=== PATIENT | male | born 1985 | race Caucasian/White ===

== ENCOUNTER 2021-03-31 08:48 | Emergency (ER) | payer OTHER ==
[~2021-03-31] VITALS: Ht 185.4 cm; Wt 105.3 kg
--- NOTE | 2021-03-31 08:58 | NUR ---
improvement coordinator: EKG completed in triage
--- NOTE | 2021-03-31 09:29 | NUR ---
PT CAME IN [place] HIGH BP. PT WAS TAKING BP AT HOME AND AT RECCOMENDATION OF HIS PYSCHOLOGIST HE CAME TO ER. HOME BP 150S/80S. PT REPORTS TAKING XANAX AND CLONOPINE. PT SAID HE ALSO AN EPISODE OF CHEST PAIN THIS MORNING. PT REPORTS OVER THE LAST 6 MONTHS HAVING ANXIETY ATTACKS. "JUST TONS OF WORK PRESSURE". PT RESTING IN [facility]. EKG COMPLETE.
[2021-03-31 09:50] LABS: BASOPHILS % (AUTO) 1 % (0-1); EOSINOPHILS % (AUTO) 1 % (1-7); LYMPHOCYTES % (AUTO) 23 % (22-44); MEAN CORPUSCULAR HEMOGLOBIN 30.8 pg (27.5-34.5); MEAN CORPUSCULAR HGB CONC 35.4 g/dL (33.2-36.2); MEAN PLATELET VOLUME 9.4 fL (7.4-10.4); MONOCYTES % (AUTO) 7 % (2-9); NEUTROPHILS % (AUTO) 68 % (42-75); PLATELET COUNT 159 x10^3/uL (130-400); RED BLOOD COUNT 5.01 x10^6/uL (4.38-5.82); RED CELL DISTRIBUTION WIDTH 13.3 % (9.4-14.8)
[2021-03-31 10:02] LABS: ALANINE AMINOTRANSFERASE 31 U/L (12-78); ALBUMIN 3.9 g/dL (3.4-5.0); ANION GAP 4 mmol/L (5-15); CALCIUM 8.7 mg/dL (8.5-10.1); CHLORIDE 109 mmol/L (98-107); CREATININE 0.97 mg/dL (0.7-1.3)
[2021-03-31 10:06] LABS: ALKALINE PHOSPHATASE 61 U/L (45-117); BILIRUBIN,TOTAL 0.6 mg/dL (0.2-1.0); TOTAL PROTEIN 7.2 g/dL (6.4-8.2); TROPONIN I < 0.015 ng/mL (0.000-0.045)
[2021-03-31 10:38] VITALS: BP 128/88
== END 2021-03-31 12:39 | disposition home or self-care (01) ==
LOC: ED 12:33
DX: I10 Essential (primary) hypertension (principal)
CPT/HCPCS: 36415; 71045; 80053; 84484; 85025; 93005; 99285